=== PATIENT | male | born 1955 | race Caucasian/White ===

== ENCOUNTER 2021-01-26 15:38 | Emergency (ER) | payer BC ==
[~2021-01-26] VITALS: Ht 180.3 cm; Wt 74.8 kg
[2021-01-26] MEDS ORDERED: LEVOXYL150 MCG PO (15:56)
[2021-01-26] MEDS ORDERED: OXYCODONE-ACET1 EAC1 PO (15:56)
[2021-01-26] MEDS ORDERED: DEXMETHYLPHENID10 MG PO (15:57)
== END 2021-01-26 18:27 | disposition home or self-care (01) ==
LOC: ED 15:38
DX: U07.1 COVID-19 (principal); Z88.8 Allergy status to other drugs, medicaments and biological substances; Z88.5 Allergy status to narcotic agent; Z79.899 Other long term (current) drug therapy
CPT/HCPCS: 71045; 94640; 94664; J7030